=== PATIENT | male | born 1975 | race Caucasian/White ===

== ENCOUNTER 2017-08-07 12:15 | Inpatient (IN) | payer OTHER ==
[2017-08-07 15:11] VITALS: BMI 21.3
--- NOTE | 2017-08-07 16:53 | HP ---
CIWA Score - CIWA Score Nausea/Vomitin-No Nausea/No Vomiting Muscle Tremors: 4-Moderate,w/Arms Extend Anxiety: 5 Agitation: 4-Moderately Restless Paroxysmal Sweats: 1-Minimal Palms Moist Orientation: 0-Oriented Tacttile Disturbances: 0-None Auditory Disturbances: 0-None Visual Disturbances: 0-None Headache: 2-Mild CIWA-Ar Total Score: 16 Admission ROS BHS - HPI Chief Complaint: ALCOHOL AND XANAX WITHDRAWAL SX Allergies/Adverse Reactions: Allergies Allergy/AdvReac Type Severity Reaction Status Date / Time No Known Allergies Allergy Verified 08/07/17 16:17 History of Present Illness: 41 Y/O MALE WITH A HX OF XANAX AND ALCOHOL DEPENDENCE ON METHADONE MAINTENANCE SEEKING DETOX [place]. Exam Limitations: No Limitations - Ebola screening Have you traveled outside of the country in the last 21 days: No Have you had contact with anyone from an Ebola affected area: No Have you been sick,other than usual withdrawal symptoms: No Do you have a fever: No - Review of Systems Constitutional: Chills, Loss of Appetite, Night Sweats, Changes in sleep, Unintentional Wgt. Loss EENT: reports: Blurred Vision, Tearing, Nose Congestion, Dental Problems ( CRACKED ARIE) Respiratory: reports: No Symptoms reported Cardiac: reports: Lightheadedness GI: reports: Diarrhea, Nausea, Poor Appetite, Poor Fluid Intake, Vomiting : reports: No Symptoms Reported Musculoskeletal: reports: Back Pain, Joint Pain, Muscle Pain Integumentary: reports: Bruising ( IVD INJ SITES ON BOTH BOTH HANDS.) Neuro: reports: Headache, Numbness, Tingling, Tremors, Unsteady Gait, Dizziness Endocrine: reports: No Symptoms Reported Hematology: reports: No Symptoms Reported Psychiatric: reports: Orientated x3, Anxious Other Systems: Reviewed and Negative Patient History - Patient Medical History Hx Anemia: No Hx Asthma: No Hx Chronic Obstructive Pulmonary Disease (COPD): No Hx Cardiac Disorders: No Hx Hypertension: No Hx Hypercholesterolemia: No Hx Seizures: No Hx Diabetes: No Hx Gastrointestinal Disorders: No Hx Genitourinary Disorders: No Hx Sexually Transmitted Disorders: No (DENIES) Hx Renal Disease (ESRD): No Hx Thyroid Disease: No Hx Human Immunodeficiency Virus (HIV): No Hx Hepatitis C: No Hx Depression: Yes (AND ANXIETY) Hx Suicide Attempt: No Hx Schizophrenia: No - Patient Surgical History Past Surgical History: No Hx Neurologic Surgery: No Hx Cataract Extraction: No Hx Cardiac Surgery: No Hx Lung Surgery: No Hx Breast Surgery: No Hx Breast Biopsy: No Hx Abdominal Surgery: No Hx Appendectomy: No Hx Cholecystectomy: No Hx Genitourinary Surgery: No Hx Orthopedic Surgery: No Anesthesia Reaction: No - PPD History Previous Implant?: Yes Documented Results: Positive w/o proof Implanted On Prior [facility] Admission?: No Results: CXR TBD PPD to be Administered?: No - Reproductive History Patient is a Female of Child Bearing Age (11 -55 yrs old): No (MALE) - Smoking Cessation Smoking history: Current every day smoker Have you smoked in the past 12 months: Yes Aproximately how many cigarettes per day: 20 Hx Chewing Tobacco Use: No Initiated information on smoking cessation: Yes 'Breaking Loose' booklet given: 08/07/17 - Substance & Tx. History Hx Alcohol Use: Yes (VODKA/COGNAC) Hx Substance Use: Yes (XANAX/COCAINE/MARIJUANA/HEROIN) Substance Use Type: Alcohol, Cocaine, Heroin, Marijuana Hx Substance Use Treatment: Yes (CURRENTLY IN [facility]) - Substances Abused Alprazolam (Xanax) Route: Oral Frequency: Daily Amount used: 24mg Age of first use: 19 Date of Last Use: 08/06/17 Cocaine Route: Injection Frequency: Daily Amount used: $20 Age of first use: 19 Date of Last Use: 08/06/17 Alcohol Route: Oral Frequency: Daily Amount used: 1/2 pint vodka or cognac Age of first use: 18 Date of Last Use: 08/06/17 Marijuana/Hashish Route: Smoking Frequency: 3-6 times per week Amount used: $10 Age of first use: 14 Date of Last Use: 08/05/17 Heroin Route: Injection Frequency: Daily Amount used: 4-6 bags Age of first use: 17 Date of Last Use: 08/05/17 Family Disease History - Family Disease History Family History: Denies Admission Physical Exam BHS - Vital Signs Vital Signs: Vital Signs - 24 hr 08/07/17 15:08 Temperature 97.4 F L Pulse Rate 58 L Respiratory 20 Rate Blood Pressure 110/69 - Physical General Appearance: Yes: Moderate Distress, Irritable, Anxious HEENTM: Yes: EOMI, Normocephalic, BEV, Pharynx Normal Respiratory: Yes: Chest Non-Tender, Lungs Clear, Normal Breath Sounds, No Respiratory Distress Neck: Yes: No masses,lesions,Nodules, Supple, Trachea in good position Breast: Yes: Breast Exam Deferred Cardiology: Yes: Regular Rhythm, Regular Rate, S1, S2 Abdominal: Yes: Normal Bowel Sounds, Non Tender, Flat, Soft Genitourinary: Yes: Other (N/C) Back: Yes: Within Normal Limits Musculoskeletal: Yes: full range of Motion, Gait Steady Extremities: Yes: Normal Range of Motion, Non-Tender Neurological: Yes: stock turner II-XII NML intact, Fully Oriented, Alert, Motor Strength 5/5 Integumentary: Yes: Dry, Warm, Track [place] Lymphatic: Yes: Within Normal Limits - Diagnostic (1) Alcohol dependence with uncomplicated withdrawal Current Visit: Yes Status: Acute (2) Sedative, hypnotic or anxiolytic dependence with withdrawal, uncomplicated Current Visit: Yes Status: Acute (3) Cocaine dependence, uncomplicated Current Visit: Yes Status: Acute (4) Methadone maintenance therapy patient Current Visit: Yes Status: Chronic Cleared for Admission [facility] - Detox or Rehab [facility] Level of Care: Medically Managed Detox Regimen/Protocol: Valium [facility] Breath Alcohol Content Breath Alcohol Content: 0 Urine Drug Screen - Results Drug Screen Negative: No Urine Drug Screen Results: THC-Marijuana, ADARSH-Cocaine, OPI-Opiates, BZO- Benzodiazepines, MTD-Methadone
[2017-08-07] MEDS ORDERED: guaiFENesin/D-METHORPHAN HB 10 ML UNIT-DOSE CUPS PO PRN (17:13)
[2017-08-07] MEDS ORDERED: ACETAMINOPHEN 325 MG TABLET (FP) PO PRN (17:13)
[2017-08-07] MEDS ORDERED: MAG HYDROX/AL HYDROX/SIMETH 30 ML UNIT-DOSE CUP PO PRN (17:13)
[2017-08-07] MEDS ORDERED: MAGNESIUM CITRATE 300 ML BOTTLE PO PRN (17:13)
[2017-08-07] MEDS ORDERED: LOPERAMIDE HCL 2 MG CAPSULE PO PRN (17:13)
[2017-08-07] MEDS ORDERED: MENTHOL/PHENOL 1 EACH UD MM PRN (17:13)
[2017-08-07] MEDS ORDERED: IBUPROFEN 400 MG TABLET (FP) PO PRN (17:13)
[2017-08-07] MEDS ORDERED: hydrOXYzine PAMOATE 50 MG CAPSULE (FP) PO PRN (17:13)
[2017-08-07] MEDS ORDERED: MAGNESIUM HYDROX 2400MG/30ML ORAL SUSPENSION 30 ML CUP PO PRN (17:13)
[2017-08-07] MEDS ORDERED: P-EPHED 60MG/TRIPROLIDI 2.5MG TABLET PO PRN (17:13)
[2017-08-07] MEDS ORDERED: diazePAM 5 MG TABLET PO ONE (17:45)
--- NOTE | 2017-08-07 19:31 | PN ---
BHS Progress Note Note: EKG sinus марина rate 51 bpm. repeat EKG in the AM.
[2017-08-07] MEDS: NICOTINE 21 MG/24 HOURS TOPICAL PATCH TD SCH (19:45)
[2017-08-07] MEDS: NICOTINE POLACRILEX 4 MG GUM BC PRN ×2 (19:47→22:32)
[2017-08-07] MEDS ORDERED: MELATONIN 5 MG TABLETS PO PRN (22:00)
[2017-08-07] MEDS: diazePAM 5 MG TABLET PO SCH (22:19)
[2017-08-07] MEDS: THIAMINE HCL 100 MG TABLET (FP) PO SCH (22:19)
[2017-08-08] MEDS: diazePAM 5 MG TABLET PO SCH ×3 (05:54→22:13)
[2017-08-08] MEDS: NICOTINE POLACRILEX 4 MG GUM BC PRN ×4 (08:32→22:14)
[2017-08-08] MEDS: diazePAM 5 MG TABLET PO PRN ×2 (08:33→17:23)
[2017-08-08] MEDS ORDERED: METHADONE HCL 40 MG DISPERSABLE TABLET PO ONE (09:45)
[2017-08-08 10:04] LABS: HEMATOCRIT 39.5 % (35.4-49); HEMOGLOBIN 13.2 GM/dL (11.7-16.9); MCH 29.6 pg (25.7-33.7); MCHC 33.4 g/dl (32.0-35.9); MEAN CELL VOLUME 88.6 fl (80-96); MEAN PLT VOLUME 7.5 fl (7.5-11.1); PLATELET COUNT 184 K/MM3 (134-434); RBC 4.46 M/mm3 (4.00-5.60); RDW 12.6 % (11.9-15.9); WHITE BLOOD COUNT 4.3 K/mm3 (4.0-10.0)
[2017-08-08 10:21] LABS: ALBUMIN 3.4 g/dl (3.4-5.0); ANION GAP 7 (8-16); BLOOD UREA NITROGEN 17 mg/dL (7-18); CHLORIDE 107 mmol/L (98-107); CO2 27 mmol/L (21-32); GLUCOSE,RANDOM 93 mg/dL (74-106); POTASSIUM 4.6 mmol/L (3.5-5.1); SODIUM 141 mmol/L (136-145)
--- NOTE | 2017-08-08 10:21 | EKG ---
Test Reason : Blood Pressure : / mmHG Vent. Rate : 051 BPM Atrial Rate : 051 BPM P-R Int : 114 ms QRS Dur : 086 ms QT Int : 506 ms P-R-T Axes : 000 106 108 degrees QTc Int : 466 ms SINUS BRADYCARDIA RIGHTWARD AXIS NO PREVIOUS ECGS AVAILABLE Confirmed by IONA ELDER MD ([id number]) on 08/08/2017 10:21:06 AM Referred By: Confirmed By:IONA ELDER MD
[2017-08-08 10:31] LABS: ALK PHOS 90 U/L (45-117); BILIRUBIN,TOTAL 0.3 mg/dL (0.2-1.0); CALCIUM 8.4 mg/dL (8.5-10.1); CREATININE 0.7 mg/dL (0.7-1.3); SGOT/AST 51 U/L (15-37); SGPT/ALT 106 U/L (12-78); TOT PROT 6.1 g/dl (6.4-8.2)
[2017-08-08] MEDS: NICOTINE 21 MG/24 HOURS TOPICAL PATCH TD SCH (10:38)
[2017-08-08] MEDS: PRENATAL VITAMINS W/ FOLIC ACID TABLET (FP) PO SCH (10:38)
--- NOTE | 2017-08-08 11:17 | PN ---
S CIWA - CIWA Score Nausea/Vomitin-No Nausea/No Vomiting Muscle Tremors: 4-Moderate,w/Arms Extend Anxiety: 4-Mod. Anxious/Guarded Agitation: 4-Moderately Restless Paroxysmal Sweats: 1-Minimal Palms Moist Orientation: 0-Oriented Tacttile Disturbances: 0-None Auditory Disturbances: 0-None Visual Disturbances: 0-None Headache: 0-None Present CIWA-Ar Total Score: 13 S Progress Note (SOAP) Subjective: ANXIETY,RESTLESSNESS,HOT/COLD CHILLS,NASAL CONGESTION,RUNNY NOSE. Objective: 08/08/17 11:17 Vital Signs 08/08/17 08/08/17 08/08/17 03:30 07:38 09:37 Temperature 97.8 F 97.2 F L Pulse Rate 63 62 Respiratory 18 18 18 Rate Blood Pressure 85/60 95/62 Laboratory Tests 08/08/17 07:30 WBC 4.3 RBC 4.46 Hgb 13.2 Hct 39.5 MCV 88.6 MCH 29.6 MCHC 33.4 RDW 12.6 Plt Count 184 MPV 7.5 OTHER LABS PENDING Assessment: 08/08/17 11:17 WITHDRAWAL SX Plan: CONTINUE DETOX
--- NOTE | 2017-08-08 16:17 | CONSULT ---
[facility] Psychiatric Consult - Data Date of interview: 08/08/17 Admission source: [facility] Identifying data: First admission to [facility] for this 41 y/o [place]-born male seeking detox treatment on for alcohol,xanax,cannabis and cocaine dependence.Patient is single without dependents,domiciled,unemployed and supported by relatives. Substance Abuse History: Confirmed by patient in this interview.Smoking history : Current every day smoker. Have you smoked in the past 12 months: Yes. Aproximately how many cigarettes per day: 20. Hx Chewing Tobacco Use: No. Initiated information on smoking cessation: Yes. 'Breaking Loose' booklet given : 08/07/17. - Substance & Tx. History. Hx Alcohol Use: Yes (VODKA/COGNAC). Hx Substance Use: Yes (XANAX/COCAINE/MARIJUANA/HEROIN). Substance Use Type: Alcohol, Cocaine, Heroin, Marijuana. Hx Substance Use Treatment: Yes ( CURRENTLY IN [facility]). - Substances Abused. Alprazolam ( Xanax). Route: Oral. Frequency: Daily. Amount used: 24mg. Age of first use: 19. Date of Last Use: 08/06/17. Cocaine. Route: Injection. Frequency: Daily. Amount used: $20. Age of first use: 19. Date of Last Use: 08/06/17. * * Alcohol. Route: Oral. Frequency: Daily. Amount used: 1/2 pint vodka or cognac. Age of first use: 18. Date of Last Use: 08/06/17. Marijuana/ Hashish. Route: Smoking. Frequency: 3-6 times per week. Amount used: $10. Age of first use: 14. Date of Last Use: 08/05/17. Heroin. Route: Injection. Frequency: Daily. Amount used: 4-6 bags. Age of first use: 17. Date of Last Use: 08/05/17 Medical History: Patient endorses good general health. Psychiatric History: Patient denies. Physical/Sexual Abuse/Trauma History: Patient denies. Additional Comment: Urine Drug Screen Results: THC-Marijuana, ADARSH-Cocaine, OPI- Opiates, BZO-Benzodiazepines, MTD-Methadone.Noted. Mental Status Exam - Mental Status Exam Alert and Oriented to: Time, Place, Person Cognitive Function: Good Patient Appearance: Well Groomed Mood: Nervous, Withdrawn Affect: Mood Congruent Patient Behavior: Appropriate, Cooperative Speech Pattern: Clear (northern irish-fluent), Appropriate Voice Loudness: Normal Thought Process: Intact, Goal Oriented Thought Disorder: Not Present Hallucinations: Denies Suicidal Ideation: Denies Homicidal Ideation: Denies Insight/Judgement: Poor Sleep: Poorly, Difficulty falling asleep Appetite: Good Muscle strength/Tone: Normal Gait/Station: Normal Psychiatric Findings - Problem List ([place] 1, 2,3) (1) Opioid dependence on agonist therapy Current Visit: Yes Status: Acute (2) Alcohol dependence with uncomplicated withdrawal Current Visit: Yes Status: Acute (3) Cocaine dependence, uncomplicated Current Visit: Yes Status: Acute (4) Sedative, hypnotic or anxiolytic dependence with withdrawal, uncomplicated Current Visit: Yes Status: Acute (5) Substance induced mood disorder Current Visit: Yes Status: Acute (6) Insomnia Current Visit: Yes Status: Acute - Initial Treatment Plan Initial Treatment Plan: Psychoeducation.Sleep hygiene.Detoxification in progress.Seroquel 100 mg po hs (patient's request for insomnia).Side effects/ benefits are discussed with the patient.Mr Gan agrees to this plan of care.Observation.
[2017-08-08 18:17] LABS: URINE APPEARANCE SLCLOUDY; URINE BILIRUBIN NEGATIVE (<2.0 mg/dL); URINE BLOOD NEGATIVE (NEGATIVE); URINE COLOR YELLOW; URINE GLUCOSE (UA) NEGATIVE (NEGATIVE); URINE KETONE NEGATIVE (NEGATIVE); URINE LEUK ESTERASE NEGATIVE (NEGATIVE); URINE NITRITE NEGATIVE (NEGATIVE); URINE PROTEIN NEGATIVE (NEGATIVE); URINE UROBILINOGEN NEGATIVE mg/dL (0.2-1.0)
[2017-08-08] MEDS: QUEtiapine FUMARATE 100 MG TABLET (FP) PO SCH (22:13)
[2017-08-08] MEDS: THIAMINE HCL 100 MG TABLET (FP) PO SCH (22:13)
[2017-08-09] MEDS: diazePAM 5 MG TABLET PO PRN ×2 (05:58→17:11)
[2017-08-09] MEDS: METHADONE HCL 40 MG DISPERSABLE TABLET PO SCH (05:58)
[2017-08-09] MEDS: NICOTINE POLACRILEX 4 MG GUM BC PRN ×4 (08:57→22:21)
[2017-08-09] MEDS: diazePAM 5 MG TABLET PO SCH ×2 (10:42→22:21)
[2017-08-09] MEDS: PRENATAL VITAMINS W/ FOLIC ACID TABLET (FP) PO SCH (10:42)
[2017-08-09] MEDS: NICOTINE 21 MG/24 HOURS TOPICAL PATCH TD SCH (10:43)
[2017-08-09] MEDS ORDERED: TRIMETHOBENZAMIDE HCL 200MG/2ML INJ IM PRN (11:58)
--- NOTE | 2017-08-09 13:34 | PN ---
S CIWA - CIWA Score Nausea/Vomitin Muscle Tremors: None Anxiety: 3 Agitation: 0-Normal Activity Paroxysmal Sweats: No Perspiration Orientation: 2-Disoriented Date<2 days Tacttile Disturbances: 3-Moderate Itch/Numb/Burn Auditory Disturbances: 0-None Visual Disturbances: 3-Moderate Sensitivity Headache: 0-None Present CIWA-Ar Total Score: 14 BHS Progress Note (SOAP) Subjective: Body Aches, Fatigue, Interrupted Sleep, Nausea. Objective: PATIENT A & O X 2 (UNCERTAIN ABOUT CURRENT DAY / DATE). PATIENT OBSERVED AMBULATING ON UNIT. NO ACUTE DISTRESS. 08/09/17 13:32 Vital Signs Temperature 96.9 F L 08/09/17 09:27 Pulse Rate 84 08/09/17 09:27 Respiratory Rate 18 08/09/17 09:27 Blood Pressure 91/62 08/09/17 09:27 O2 Sat by Pulse Oximetry (%) Laboratory Tests 08/08/17 08/08/17 08/08/17 07:30 07:30 07:30 WBC 4.3 RBC 4.46 Hgb 13.2 Hct 39.5 MCV 88.6 MCH 29.6 MCHC 33.4 RDW 12.6 Plt Count 184 MPV 7.5 Sodium 141 Potassium 4.6 Chloride 107 Carbon Dioxide 27 Anion Gap 7 L BUN 17 Creatinine 0.7 Creat Clearance w eGFR > 60 Random Glucose 93 Calcium 8.4 L Total Bilirubin 0.3 AST 51 H ALT 106 H Alkaline Phosphatase 90 Total Protein 6.1 L Albumin 3.4 Urine Color Urine Appearance Urine pH Ur Specific [place] Urine Protein Urine Glucose (UA) Urine Ketones Urine Blood Urine Nitrite Urine Bilirubin Urine Urobilinogen Ur Leukocyte Esterase RPR Titer Nonreactive 08/08/17 13:50 WBC RBC Hgb Hct MCV MCH MCHC RDW Plt Count MPV Sodium Potassium Chloride Carbon Dioxide Anion Gap BUN Creatinine Creat Clearance w eGFR Random Glucose Calcium Total Bilirubin AST ALT Alkaline Phosphatase Total Protein Albumin Urine Color Yellow Urine Appearance Slcloudy Urine pH 5.0 Ur Specific [place] 1.017 Urine Protein Negative Urine Glucose (UA) Negative Urine Ketones Negative Urine Blood Negative Urine Nitrite Negative Urine Bilirubin Negative Urine Urobilinogen Negative Ur Leukocyte Esterase Negative RPR Titer LABS NOTED. Assessment: 08/09/17 13:32 WITHDRAWAL SYMPTOMS. Plan: CONTINUE DETOX. PRN TIGAN IM FOR NAUSEA. INCREASE DAILY PO FLUID INTAKE.
[2017-08-09] MEDS: THIAMINE HCL 100 MG TABLET (FP) PO SCH (22:20)
[2017-08-09] MEDS: QUEtiapine FUMARATE 100 MG TABLET (FP) PO SCH (22:21)
[2017-08-10] MEDS: diazePAM 5 MG TABLET PO PRN ×2 (05:54→15:04)
[2017-08-10] MEDS: METHADONE HCL 40 MG DISPERSABLE TABLET PO SCH (05:54)
[2017-08-10] MEDS: NICOTINE POLACRILEX 4 MG GUM BC PRN ×4 (05:58→20:48)
[2017-08-10] MEDS: NICOTINE 21 MG/24 HOURS TOPICAL PATCH TD SCH (10:26)
[2017-08-10] MEDS: diazePAM 5 MG TABLET PO SCH ×2 (10:26→22:19)
[2017-08-10] MEDS: PRENATAL VITAMINS W/ FOLIC ACID TABLET (FP) PO SCH (10:27)
--- NOTE | 2017-08-10 14:54 | PN ---
BHS Progress Note (SOAP) Subjective: Nausea, Interrupted Sleep, Anxious, Tremors, Stomach Cramping, Sweating. Objective: PATIENT A & O X 3, OBSERVED AMBULATING ON UNIT. NO ACUTE DISTRESS. 08/10/17 14:52 Vital Signs Temperature 97.7 F 08/10/17 13:17 Pulse Rate 67 08/10/17 13:17 Respiratory Rate 18 08/10/17 13:17 Blood Pressure 92/51 08/10/17 13:17 O2 Sat by Pulse Oximetry (%) Laboratory Tests 08/08/17 08/08/17 08/08/17 07:30 07:30 07:30 WBC 4.3 RBC 4.46 Hgb 13.2 Hct 39.5 MCV 88.6 MCH 29.6 MCHC 33.4 RDW 12.6 Plt Count 184 MPV 7.5 Sodium 141 Potassium 4.6 Chloride 107 Carbon Dioxide 27 Anion Gap 7 L BUN 17 Creatinine 0.7 Creat Clearance w eGFR > 60 Random Glucose 93 Calcium 8.4 L Total Bilirubin 0.3 AST 51 H ALT 106 H Alkaline Phosphatase 90 Total Protein 6.1 L Albumin 3.4 Urine Color Urine Appearance Urine pH Ur Specific [place] Urine Protein Urine Glucose (UA) Urine Ketones Urine Blood Urine Nitrite Urine Bilirubin Urine Urobilinogen Ur Leukocyte Esterase RPR Titer Nonreactive 08/08/17 13:50 WBC RBC Hgb Hct MCV MCH MCHC RDW Plt Count MPV Sodium Potassium Chloride Carbon Dioxide Anion Gap BUN Creatinine Creat Clearance w eGFR Random Glucose Calcium Total Bilirubin AST ALT Alkaline Phosphatase Total Protein Albumin Urine Color Yellow Urine Appearance Slcloudy Urine pH 5.0 Ur Specific [place] 1.017 Urine Protein Negative Urine Glucose (UA) Negative Urine Ketones Negative Urine Blood Negative Urine Nitrite Negative Urine Bilirubin Negative Urine Urobilinogen Negative Ur Leukocyte Esterase Negative RPR Titer LABS NOTED. Assessment: 08/10/17 14:52 WITHDRAWAL SYMPTOMS. Plan: CONTINUE DETOX. INCREASE DAILY PO FLUID INTAKE. PATIENT SCHEDULED FOR D/C TOMORROW.
[2017-08-10] MEDS: THIAMINE HCL 100 MG TABLET (FP) PO SCH (22:19)
[2017-08-10] MEDS: QUEtiapine FUMARATE 100 MG TABLET (FP) PO SCH (22:19)
--- NOTE | 2017-08-10 22:46 | EKG ---
Test Reason : Blood Pressure : / mmHG Vent. Rate : 057 BPM Atrial Rate : 057 BPM P-R Int : 118 ms QRS Dur : 082 ms QT Int : 474 ms P-R-T Axes : 030 070 070 degrees QTc Int : 461 ms POOR DATA QUALITY, INTERPRETATION MAY BE ADVERSELY AFFECTED SINUS BRADYCARDIA OTHERWISE NORMAL ECG WHEN COMPARED WITH ECG OF 07-AUG-2017 19:26, QRS AXIS SHIFTED LEFT Confirmed by RACHEL WALELR MD ([id number]) on 08/10/2017 10:46:32 PM Referred By: Confirmed By:RACHEL WALLER MD
[2017-08-11] MEDS: METHADONE HCL 40 MG DISPERSABLE TABLET PO SCH (06:09)
[2017-08-11] MEDS: NICOTINE POLACRILEX 4 MG GUM BC PRN (06:10)
[2017-08-11 06:39] VITALS: BP 103/65; PULSE 63; TEMP 97.3
[2017-08-11] MEDS ORDERED: diazePAM 5 MG TABLET PO SCH (10:00)
[2017-08-11] MEDS: PRENATAL VITAMINS W/ FOLIC ACID TABLET (FP) PO SCH (11:38)
[2017-08-11] MEDS: NICOTINE 21 MG/24 HOURS TOPICAL PATCH TD SCH (11:38)
--- NOTE | 2017-08-11 15:25 | PN ---
S Progress Note (SOAP) Subjective: denies any complaint Objective: 08/11/17 15:21 A O x 3 In no acute distress Anxious about aftercare Assessment: 08/11/17 15:22 Withdrawal successfully completed Plan: For d/c
--- NOTE | 2017-08-11 15:30 | DS ---
[facility] Detox Discharge Summary Admission Date: 08/07/17 Discharge Date: 08/11/17 - History Additional Comments: Pt being discharged - Physical Exam Results Vital Signs: Vital Signs Temperature 97.3 F L 08/11/17 06:38 Pulse Rate 63 08/11/17 06:38 Respiratory Rate 16 08/11/17 06:38 Blood Pressure 103/65 08/11/17 06:38 O2 Sat by Pulse Oximetry (%) Pertinent Admission Physical Exam Findings: withdrawal sx - Treatment Hospital Course: Detox Protocol Followed, Detoxed Safely, Responded well, Discharged Condition Good Patient has Accepted a Rehab Referral to: Out patient Meetings - Medication Discharge Medications: Ambulatory Orders NK [No Known Home Medication] 08/07/17 - Diagnosis (1) Alcohol dependence with uncomplicated withdrawal Status: Acute (2) Cocaine dependence, uncomplicated Status: Acute (3) Insomnia Status: Acute (4) Opioid dependence on agonist therapy Status: Acute (5) Sedative, hypnotic or anxiolytic dependence with withdrawal, uncomplicated Status: Acute - AMA Did Patient Leave Against Medical Advice: No
== END 2017-08-11 12:22 | disposition home or self-care (01) | DRG 773 ==
LOC: YASAS 12:15 → Y3N 16:33
PROVIDERS: ADMIT Internal Medicine; ATTEND Internal Medicine
PROC: HZ2ZZZZ Detoxification Services for Substance Abuse Treatment (ICD-10-PCS; principal; 2017-08-07)
DX: F11.20 Opioid dependence, uncomplicated (principal); F13.230 Sedative, hypnotic or anxiolytic dependence with withdrawal, uncomplicated; F10.230 Alcohol dependence with withdrawal, uncomplicated; F14.20 Cocaine dependence, uncomplicated; F19.24 Other psychoactive substance dependence with psychoactive substance-induced mood disorder; G47.00 Insomnia, unspecified
CPT/HCPCS: 36415; 71046-TC-FY; 80053; 81003; 85027; 86593; 93005; 93010